=== PATIENT | male | born 1990 | race Caucasian/White ===

== ENCOUNTER 2019-07-10 11:26 | Emergency (ER) | payer SELFPAY ==
[~2019-07-10] VITALS: Ht 175.3 cm; Wt 74.8 kg
--- NOTE | 2019-07-10 11:38 | NUR ---
ED Nurse Note: PT BROUGHT IN BY [facility] AOX4. PT C/O GENERALIZED ABDOMINAL PAIN, NAUSEA, AND MULTIPLE EPISODES OF VOMITING X THIS MORNING. PT DENIES DIARRHEA. ABDOMEN NONDISTENDED AND NONTENDER TO PALPATION. ACTIVE BOWEL SOUNDS IN ALL QUADRANTS.
[2019-07-10 11:39] VITALS: BP 128/72
--- NOTE | 2019-07-10 11:40 | NUR ---
ED Nurse Note: PT BRADYCARDIC - HR 42. DR FELDER NOTIFIED. SINUS RHYTHM ON BENCH MOLDER. PT STATES HE IS NORMALLY BRADYCARDIC.
--- NOTE | 2019-07-10 11:42 | NUR ---
ED Nurse Note: PT MOANING IN PAIN AND REQUESTING DILAUDID. DR FELDER NOTIFIED.
[2019-07-10] MEDS ORDERED: Metoclopramide 10mg/2ml Inj IVP ONE (11:45)
[2019-07-10] MEDS ORDERED: DiphenhydrAMINE 50mg/ml Inj IVP ONE (11:45)
[2019-07-10] MEDS ORDERED: LORazepam Inj 2mg/ml 1ml IV ONE (11:45)
--- NOTE | 2019-07-10 12:04 | Emergency Room Report ---
History of Present Illness General Chief Complaint: Abdominal Pain Source: Patient, EMS (MaggySamantha ruiz DO) Present Illness HPI Patient presents with complaints of increased nausea vomiting Patient himself initially is acutely nauseated and not providing significant input history was mainly obtained from nursing staff and the paramedics Patient is at a recovery center and had reported to be outside yesterday Now he feels that he is withdrawing from marijuana Denies any chest pain however he does have diffuse abdominal cramping and increased nausea vomiting Denies any focal weakness (Samantha Zaldivar DO) Allergies: Coded Allergies: No Known Allergies (Unverified , 07/10/19) Patient History Past Medical History: see triage record Reviewed Nursing Documentation: PMH: Agreed; PSxH: Agreed (Samantha Zaldivar DO) Nursing Documentation-PMH Past Medical History: No History, Except For History Of Psychiatric Problem: Yes - drug abuse (Samantha Zaldivar DO) Review of Systems All Other Systems: negative except mentioned in HPI (Samantha Zaldivar DO) Physical Exam Vital Signs Date Time Temp Pulse Resp B/P (MAP) Pulse Ox O2 Delivery O2 Flow Rate FiO2 07/10/19 11:11 96.6 54 20 136/76 (96) 98 Room Air Sp02 EP Interpretation: reviewed, normal General Appearance: mild distress - Actively nauseated Head: normocephalic, atraumatic Eyes: bilateral eye PERRL, bilateral eye EOMI ENT: hearing grossly normal, normal pharynx, TMs + canals normal, uvula midline Neck: full range of motion, supple, no meningismus, no bony tend Respiratory: lungs clear, normal breath sounds, no rhonchi, no respiratory distress, no retraction, no accessory muscle use Cardiovascular #1: normal peripheral pulses, regular rate, rhythm, no edema, no gallop, no JVD, no murmur Gastrointestinal: normal bowel sounds, non tender, soft, no mass, no organomegaly, non-distended, no guarding, no hernia, no pulsatile mass, no rebound Genitourinary: no CVA tenderness Musculoskeletal: normal inspection Neurologic: oriented x3, responsive, sales and marketing representative III-XII nml as tested, motor strength/ tone normal, sensory intact Psychiatric: mood/affect normal Skin: no rash Lymphatic: normal inspection, no adenopathy (Samantha Zaldivar DO) Medical Decision Making Diagnostic Impression: Primary Impression: Cannabinoid hyperemesis syndrome Additional Impression: Colitis ER Course With the history exam and presentation, multiple differentials considered, including but not limited to appendicitis, gastritis, cholecystitis, diverticulitis Patient initially difficult to obtain history from after initial medication and some improved symptoms Patient reports that he acutely became nauseated and has diffuse abdominal discomfort Patient still not able to provide information regarding why he is in a rehab facility he also is not able to provide history of What happened last night or if he took any medications or drugs On reevaluation patient requesting something for his stomach pain I discussed that I would be prescribing Toradol Patient reports ' this will not work for me' And asking further he reports that he receives Dilaudid Patient further hydrated antiemetics provided Patient pending CT imaging of the abdomen and signed out to my oncoming physician Labs Test 07/10/19 11:50 07/10/19 14:30 White Blood Count 14.0 K/UL (4.8-10.8) Red Blood Count 5.43 M/UL (4.70-6.10) Hemoglobin 17.0 G/DL (14.2-18.0) Hematocrit 48.0 % (42.0-52.0) Mean Corpuscular Volume 89 FL (80-99) Mean Corpuscular Hemoglobin 31.3 PG (27.0-31.0) Mean Corpuscular Hemoglobin Concent 35.3 G/DL (32.0-36.0) Red Cell Distribution Width 10.7 % (11.6-14.8) Platelet Count 296 K/UL (150-450) Mean Platelet Volume 6.4 FL (6.5-10.1) Neutrophils (%) (Auto) 80.3 % (45.0-75.0) Lymphocytes (%) (Auto) 13.5 % (20.0-45.0) Monocytes (%) (Auto) 5.4 % (1.0-10.0) Eosinophils (%) (Auto) 0.3 % (0.0-3.0) Basophils (%) (Auto) 0.6 % (0.0-2.0) Sodium Level 141 MMOL/L (136-145) Potassium Level 4.1 MMOL/L (3.5-5.1) Chloride Level 105 MMOL/L (98-107) Carbon Dioxide Level 27 MMOL/L (21-32) Anion Gap 10 mmol/L (5-15) Blood Urea Nitrogen 25 mg/dL (7-18) Creatinine 1.1 MG/DL (0.55-1.30) Estimat Glomerular Filtration Rate > 60 mL/min (>60) Glucose Level 194 MG/DL (74-106) Calcium Level 9.2 MG/DL (8.5-10.1) Total Bilirubin 1.4 MG/DL (0.2-1.0) Direct Bilirubin 0.3 MG/DL (0.0-0.3) Aspartate Amino Transf (AST/SGOT) 41 U/L (15-37) Alanine Aminotransferase (ALT/SGPT) 41 U/L (12-78) Alkaline Phosphatase 138 U/L (46-116) Total Creatine Kinase 275 U/L (26-308) Creatine Kinase MB 2.4 NG/ML (0.0-3.6) Creatine Kinase MB Relative Index 0.8 Total Protein 7.7 G/DL (6.4-8.2) Albumin 4.2 G/DL (3.4-5.0) Globulin 3.5 g/dL Albumin/Globulin Ratio 1.2 (1.0-2.7) Lipase 178 U/L (73-393) Serum Alcohol < 3 mg/dL Urine Opiates Screen Negative (NEGATIVE) Urine Barbiturates Screen Positive (NEGATIVE) Phencyclidine (PCP) Screen Negative (NEGATIVE) Urine Amphetamines Screen Negative (NEGATIVE) Urine Benzodiazepines Screen Negative (NEGATIVE) Urine Cocaine Screen Negative (NEGATIVE) Urine Marijuana (THC) Screen Positive (NEGATIVE) (Samantha Zaldivar DO) ER Course Sign out received from Dr. Zaldivar 2:30pm 28-year-old male history of polysubstance abuse in treatment center presents with acute nausea vomiting, generalized abdominal pain Urinary tox screen shows barbiturates and THC Patient is requesting Dilaudid counseled patient that Dilaudid is not indicated CT scan shows no acute processes possible colitis however patient's abdomen is soft, nontender Will disposition patient home with return precautions and symptomatic control Laboratory Tests Test 07/10/19 11:50 07/10/19 14:30 White Blood Count 14.0 K/UL (4.8-10.8) H Red Blood Count 5.43 M/UL (4.70-6.10) Hemoglobin 17.0 G/DL (14.2-18.0) Hematocrit 48.0 % (42.0-52.0) Mean Corpuscular Volume 89 FL (80-99) Mean Corpuscular Hemoglobin 31.3 PG (27.0-31.0) H Mean Corpuscular Hemoglobin Concent 35.3 G/DL (32.0-36.0) Red Cell Distribution Width 10.7 % (11.6-14.8) L Platelet Count 296 K/UL (150-450) Mean Platelet Volume 6.4 FL (6.5-10.1) L Neutrophils (%) (Auto) 80.3 % (45.0-75.0) H Lymphocytes (%) (Auto) 13.5 % (20.0-45.0) L Monocytes (%) (Auto) 5.4 % (1.0-10.0) Eosinophils (%) (Auto) 0.3 % (0.0-3.0) Basophils (%) (Auto) 0.6 % (0.0-2.0) Sodium Level 141 MMOL/L (136-145) Potassium Level 4.1 MMOL/L (3.5-5.1) Chloride Level 105 MMOL/L (98-107) Carbon Dioxide Level 27 MMOL/L (21-32) Anion Gap 10 mmol/L (5-15) Blood Urea Nitrogen 25 mg/dL (7-18) H Creatinine 1.1 MG/DL (0.55-1.30) Estimate Glomerular Filtration Rate > 60 mL/min (>60) Glucose Level 194 MG/DL (74-106) H Calcium Level 9.2 MG/DL (8.5-10.1) Total Bilirubin 1.4 MG/DL (0.2-1.0) H Direct Bilirubin 0.3 MG/DL (0.0-0.3) Aspartate Amino Transferase (AST) 41 U/L (15-37) H Alanine Aminotransferase (ALT) 41 U/L (12-78) Alkaline Phosphatase 138 U/L (46-116) H Total Creatine Kinase 275 U/L (26-308) Creatine Kinase MB 2.4 NG/ML (0.0-3.6) Creatine Kinase MB Relative Index 0.8 Total Protein 7.7 G/DL (6.4-8.2) Albumin 4.2 G/DL (3.4-5.0) Globulin 3.5 g/dL Albumin/Globulin Ratio 1.2 (1.0-2.7) Lipase 178 U/L (73-393) Serum Alcohol < 3 mg/dL Urine Opiates Screen Negative (NEGATIVE) Urine Barbiturates Screen Positive (NEGATIVE) H Phencyclidine (PCP) Screen Negative (NEGATIVE) Urine Amphetamines Screen Negative (NEGATIVE) Urine Benzodiazepines Screen Negative (NEGATIVE) Urine Cocaine Screen Negative (NEGATIVE) Urine Marijuana (THC) Screen Positive (NEGATIVE) H (Orlando Christy MD) CT/MRI/US Diagnostic Results CT/MRI/US Diagnostic Results : Impression Preliminary Findings Only See Final Report For Complete Findings CT ABDOMEN & PELVIS With Contrast: Mild diffuse colonic thickening which may be underdistention versus colitis. No appendicitis, SBO, or diverticulitis. No hydronephrosis or ureteral calculus. Unremarkable gallbladder and pancreas. Splenic cyst. Radiologist: Mc Smith M.D. Study ready at 15:16 and initial results transmitted at 15:19 (Orlando Christy MD) Last Vital Signs Date Time Temp Pulse Resp B/P (MAP) Pulse Ox O2 Delivery O2 Flow Rate FiO2 07/10/19 11:39 62 18 Room Air 07/10/19 11:39 98.0 128/72 100 (Samantha Zaldivar DO) Disposition: HOME, SELF-CARE Condition: Stable Scripts Ondansetron (Zofran) 4 Mg Tablet 4 MG ORAL Q8H PRN for Nausea & Vomiting, #15 TAB 0 Refills Prov: Orlando Christy MD 07/10/19 Dicyclomine Hcl* (DICYCLOMINE HCL*) 10 Mg Capsule 10 MG ORAL QID PRN for Abdominal cramps, #20 CAP Prov: Orlando Christy MD 07/10/19 Amoxicillin/Potassium Clav 875-125* (AUGMENTIN 875-125 TABLET*) 1 Each Tablet 1 TAB ORAL TWICE A DAY, #20 TAB Prov: Orlando Christy MD 07/10/19 Referrals: [facility] Patient Instructions: Abdominal Pain, Adult, Cannabis Use Disorder, Viral Gastroenteritis, Adult Additional Instructions: The patient was provided with discharge instructions, notified to follow-up with a primary care doctor and or specialist in the next 24-48 hours, and to return to the ED if they have worsening of their symptoms. Please note that this report is being documented using DRAGON technology. This can lead to erroneous entry secondary to incorrect interpretation by the dictating instrument. Samantha Zaldivar DO Jul 10, 2019 12:04 Orlando Christy MD Jul 10, 2019 15:37
--- NOTE | 2019-07-10 12:05 | NUR ---
ED Nurse Note: XRAY AT BEDSIDE.
[2019-07-10 12:14] LABS: BASOPHILS % (AUTO) 0.6 % (0.0-2.0); EOSINOPHILS % (AUTO) 0.3 % (0.0-3.0); LYMPHOCYTES % (AUTO) 13.5 % (20.0-45.0); MEAN CORPUSCULAR VOLUME 89 FL (80-99); MONOCYTES % (AUTO) 5.4 % (1.0-10.0); NEUTROPHILS % (AUTO) 80.3 % (45.0-75.0); PLATELET COUNT 296 K/UL (150-450); RED BLOOD COUNT 5.43 M/UL (4.70-6.10); RED CELL DISTRIBUTION WIDTH 10.7 % (11.6-14.8)
[2019-07-10 12:20] LABS: ANION GAP 10 mmol/L (5-15); BLOOD UREA NITROGEN 25 mg/dL (7-18); CALCIUM 9.2 MG/DL (8.5-10.1); CARBON DIOXIDE 27 MMOL/L (21-32); CHLORIDE 105 MMOL/L (98-107); CREATININE 1.1 MG/DL (0.55-1.30); POTASSIUM 4.1 MMOL/L (3.5-5.1); SODIUM 141 MMOL/L (136-145)
--- NOTE | 2019-07-10 12:20 | NUR ---
ED Nurse Note: PT REMINDED URINE SPECIMEN IS NEEDED. PT STATES HE CANNOT URINATE AT THIS TIME. URINAL LEFT AT BEDSIDE.
[2019-07-10 12:32] LABS: ALANINE AMINOTRANSFERASE 41 U/L (12-78); ALBUMIN 4.2 G/DL (3.4-5.0); ALBUMIN/GLOBULIN RATIO 1.2 (1.0-2.7); ALKALINE PHOSPHATASE 138 U/L (46-116); ASPARTATE AMINO TRANSFERASE 41 U/L (15-37); BILIRUBIN,TOTAL 1.4 MG/DL (0.2-1.0); CKMB 2.4 NG/ML (0.0-3.6); CREATINE KINASE 275 U/L (26-308)
[2019-07-10 12:36] LABS: BILIRUBIN,DIRECT 0.3 MG/DL (0.0-0.3)
[2019-07-10] MEDS ORDERED: Isovue-300 100ml vial INJ PRN (13:45)
--- NOTE | 2019-07-10 13:48 | NUR ---
ED Nurse Note: PT TO CT VIA ZAHRA.
[2019-07-10] MEDS ORDERED: LR 1000ml 1,000 ML IV ONE (14:15)
--- NOTE | 2019-07-10 15:00 | NUR ---
ED Nurse Note: PT TOLERATING PO FLUIDS WELL. PT SLEEPING PEACEFULLY IN BED IN NAD.
--- NOTE | 2019-07-10 15:20 | Diagnostic Imaging Report ---
Indication: Abdominal pain Technique: Continuous helical transaxial imaging of the abdomen and pelvis was obtained from the lung bases to the pubic symphysis during intravenous contrast administration. Coronal 2-D reformats were also obtained. Study obtained in a Siemens sensation [address] Automatic Exposure Control was utilized. Total Dose length Product (DLP): 727.[address] Dose Index Volume (CTDIvol): 13.68 mGy Comparison: None Findings: The lung bases are clear. There is a cyst in the spleen measuring 2.7 cm. The liver and gallbladder are unremarkable. Pancreas kidneys adrenal glands are unremarkable. The appendix is retrocecal and appears normal. Bowel gas pattern is nonobstructive. Bladder is unremarkable. There is no ascites. IMPRESSION: No acute findings appreciated. Normal appendix Splenic cyst The CT scanner at [facility] is accredited by the [employer] and the scans are performed using dose optimization techniques as appropriate to a performed exam including Automatic Exposure control.
[2019-07-10] MEDS ORDERED: DICYCLOMINE HCL10 MG ORAL (15:34)
[2019-07-10] MEDS ORDERED: ZOFRAN4 MG ORAL (15:34)
[2019-07-10] MEDS ORDERED: AUGMENTIN 875-1 EAC1 ORAL (15:34)
--- NOTE | 2019-07-10 15:35 | NUR ---
ED Nurse Note: PT C/O ABDOMINAL PAIN AGAIN. PT REQUESTING FOR DILAUDID AGAIN. DR ACEVES NOTIFIED.
[2019-07-10] MEDS ORDERED: Ketorolac 30mg Inj ONE (15:41)
[2019-07-10] MEDS ORDERED: Ketorolac 30mg Inj IV ONE (15:45)
--- NOTE | 2019-07-10 15:48 | NUR ---
ED Nurse Note: PT READY FOR DISCHARGE PER DR ACEVES. PRESCRIPTIONS AND DISCHARGE PAPERWORK EXPLAINED TO PT. PT VERBALIZES UNDERSTANDING AND ALL QUESTIONS ANSWERED. PRESCRIPTIONS AND DISCHARGE PAPERWORK GIVEN TO PT, IV AND ID WRISTBAND REMOVED. PT WALKED OUT OF ER WITH STEADY GAIT AND ALL BELONGINGS.
[2019-07-10 15:50] VITALS: BP 122/76
--- NOTE | 2019-07-11 11:32 | Diagnostic Imaging Report ---
Indication: Dyspnea Comparison: None A single view chest radiograph was obtained. Findings: Cardiomediastinal appearance is within normal limits for age. The lungs are clear. Pulmonary vascularity is appropriate. The diaphragmatic contour is smooth and costophrenic angles are sharp. No pleural effusions are identified. The bones are unremarkable. Impression: No acute findings
--- NOTE | 2019-07-11 18:40 | Cardiology Report ---
APPROVED REPORT EKG Measurement Heart [id number] [id number] Marked sinus bradycardia with sinus arrhythmia Abnormal ECG
== END 2019-07-10 15:48 | disposition home or self-care (01) ==
LOC: EDBD 11:26 → EMR 11:59
DX: K52.9 Noninfective gastroenteritis and colitis, unspecified (principal); F12.188 Cannabis abuse with other cannabis-induced disorder; R11.10 Vomiting, unspecified
CPT/HCPCS: 36415; 71045; 74177; 80053; 80307; 82248; 82550; 82553; 83690; 85025; 93005; 96361; 96374; 96375; 99284; G0480; J1200; J1885; J2405; J2765; Q9967; 80329

== ENCOUNTER 2020-12-08 14:24 | Emergency (ER) | payer SELFPAY ==
[2020-12-08] VITALS (7 sets, daily range): BP systolic 107–141; BP diastolic 69–96
[~2020-12-08] VITALS: Ht 182.9 cm; Wt 90.7 kg
[~2020-12-08 14:24] MED LIST: AUGMENTIN 875-1 EAC1 ORAL; DICYCLOMINE HCL10 MG ORAL; ZOFRAN4 MG ORAL
[2020-12-08] MEDS ORDERED: LORazepam Inj 2mg/ml 1ml IV ONE (15:00)
[2020-12-08] MEDS ORDERED: Ketorolac 30mg Inj IV ONE (15:00)
[2020-12-08 15:12] LABS: BASOPHILS % (AUTO) 1.7 % (0.0-2.0); EOSINOPHILS % (AUTO) 1.1 % (0.0-3.0); HEMATOCRIT 44.9 % (42.0-52.0); HEMOGLOBIN 15.3 G/DL (14.2-18.0); LYMPHOCYTES % (AUTO) 22.2 % (20.0-45.0); MEAN CORPUSCULAR VOLUME 95 FL (80-99); MONOCYTES % (AUTO) 4.8 % (1.0-10.0); NEUTROPHILS % (AUTO) 70.2 % (45.0-75.0); PLATELET COUNT 275 K/UL (150-450); RED CELL DISTRIBUTION WIDTH 11.7 % (11.6-14.8); WHITE BLOOD COUNT 14.2 K/UL (4.8-10.8)
[2020-12-08] MEDS ORDERED: Haloperidol 5mg/ml Inj IM ONE (15:15)
[2020-12-08 15:21] LABS: ANION GAP 22 mmol/L (5-15); BLOOD UREA NITROGEN 21 mg/dL (7-18); CALCIUM 9.8 MG/DL (8.5-10.1); CARBON DIOXIDE 20 MMOL/L (21-32); CHLORIDE 101 MMOL/L (98-107); CREATININE 1.2 MG/DL (0.55-1.30); POTASSIUM 3.5 MMOL/L (3.5-5.1); SODIUM 142 MMOL/L (136-145)
[2020-12-08 15:26] LABS: ALANINE AMINOTRANSFERASE 18 U/L (12-78); ALBUMIN 4.3 G/DL (3.4-5.0); ALBUMIN/GLOBULIN RATIO 1.1 (1.0-2.7); ALKALINE PHOSPHATASE 78 U/L (46-116); ASPARTATE AMINO TRANSFERASE 24 U/L (15-37); BILIRUBIN,TOTAL 0.9 MG/DL (0.2-1.0)
--- NOTE | 2020-12-08 16:21 | NUR ---
ED Nurse Note: pt aggressive & yelling in ER waiting room. pt called 911 from ER waiting room due to "not wanting to wait". pt able to be calmed down. agreed to be seen in ER. pt bedded, IV placed, pt on monitor, labs sent. pt medicated for hydration/pain/nausea/agitation. pt yelling at staff for more pain medications. pt unable to redirect. 1600: pt ripped out IV due to "trying to get comfortable". pt repeating "NURSE! NURSE! I NEED PAIN MEDICATION." RN explaining pt was medicated for pain already and it is too early for more pain medication. pt becoming aggressive, getting out of bed, yelling for the MD airport tower controller to give him medicine. pt refusing to wear mask in room or in hallway. pt eventually calm and able to return to bed. 1630: pt refusing to stay on secured entrance monitor. pt informed of importance and educated on why he needs to be monitored.
--- NOTE | 2020-12-08 17:30 | NUR ---
ED Nurse Note: pt refusing to stay on cardiac montior. pt ambulating to restroom. pt refsuing to give urine sample. 1800: pt refusing to stay on cardiac/O2 monitor. pt refusing to wear mask. pt bradycardic when on monitor. MD aware. 1845: pt gave urine sample. RN walked to lab. pt agreed to stay on director of cardiac cath lab after speaking with . 1900: handoff pt care to katerina hurtado.
--- NOTE | 2020-12-08 18:40 | Emergency Room Report ---
History of Present Illness General Chief Complaint: Vomiting Source: Patient, Medical Record Present Illness HPI 30-year-old male presents with abdominal pain and nausea and vomiting. Patient was in waiting room started screaming and yelling demanding to be seen immediately. Refused to be triaged. Refused to wear a mask. Patient called 911. [employer] spoke to him and explained that his behavior is inappropriate. Told him they would call the police which she begged them not to. Stated at this point he would comply. Admits to marijuana use. Pain is general, 6 out of 10, nonradiating. Denies chest pain or shortness of breath. No other aggravating relieving factors. Denies any other associated symptoms Allergies: Coded Allergies: No Known Allergies (Unverified , 07/10/19) COVID-19 Screening Contact w/high risk pt: No Experienced COVID-19 symptoms?: Yes COVID-19 Testing performed POISING INSPECTOR: No Patient History Past Medical History: none Past Surgical History: none Pertinent Family History: none Social History: Reports: drug use; Denies: smoking, alcohol use Immunizations: UTD Reviewed Nursing Documentation: PMH: Agreed; PSxH: Agreed Nursing Documentation-PMH Past Medical History: No History, Except For Review of Systems All Other Systems: negative except mentioned in HPI Physical Exam Vital Signs Date Time Temp Pulse Resp B/P (MAP) Pulse Ox O2 Delivery O2 Flow Rate FiO2 12/08/20 14:57 97.5 58 20 149/94 (112) 100 Room Air 12/08/20 15:26 100 Sp02 EP Interpretation: reviewed, normal General Appearance: no apparent distress, alert, GCS 15, non-toxic Head: normocephalic, atraumatic Eyes: bilateral eye normal inspection, bilateral eye PERRL ENT: hearing grossly normal, normal pharynx, no angioedema, normal voice Neck: full range of motion, supple/symm/no masses Respiratory: chest non-tender, lungs clear, normal breath sounds, speaking full sentences Cardiovascular #1: regular rate, rhythm, no edema Cardiovascular #2: 2+ carotid (R), 2+ carotid (L), 2+ radial (R), 2+ radial (L), 2+ dorsalis pedis (R), 2+ dorsalis pedis (L) Gastrointestinal: normal bowel sounds, non tender, soft, non-distended, no guarding, no rebound Rectal: deferred Genitourinary: normal inspection, no CVA tenderness Musculoskeletal: back normal, normal range of motion, gait/station normal, non- tender Neurologic: alert, motor strength/tone normal, oriented x3, sensory intact, responsive, speech normal Psychiatric: judgement/insight normal, memory normal, mood/affect normal, no suicidal/homicidal ideation Reflexes: 3+ bicep (R), 3+ bicep (L), 3+ tricep (R), 3+ tricep (L), 3+ knee (R), 3+ knee (L) Lymphatic: no adenopathy Medical Decision Making Diagnostic Impression: Primary Impression: Vomiting Qualified Codes: R11.2 - Nausea with vomiting, unspecified ER Course Hospital Course 30-year-old male presents with abdominal pain and vomiting Differential diagnosis includes-appendicitis, cholecystitis, small bowel obstruction, gastritis, Clinical course Patient placed on stretcher. After initial history and physical I ordered labs, IV fluids, pain medications Labs - noted leukocytosis, electrolytes ok, LFTs normal, UDS + THC patient continue his medication patient continues to complain of pain. CT ordered CT scan shows no acute pathology On reassessment patient still has states he has pain. I reviewed EMR has been here previously for similar episodes of pain with CT being negative. Patient continues to be disruptive to the ED constantly removing his IV and monitor. Patient will be discharged. I feel this is a highly complex case requiring extensive working including EKG/Rhythm strip, Xray/CT/US, Blood/urine lab work, repeat exams while in ED, and administration of strong opiates/narcotics for pain control, admission to hospital or close patient follow up. Diagnosis - vomiting Stable and discharged to home. Followup with PMD. Return to ED if symptoms recur or worsen Laboratory Tests Test 12/08/20 18:49 Urine Color Yellow Urine Appearance Slightly cloudy Urine pH 6 (4.5-8.0) Urine Specific [place] 1.020 (1.005-1.035) Urine Protein 2+ (NEGATIVE) H Urine Glucose (UA) Negative (NEGATIVE) Urine Ketones 4+ (NEGATIVE) H Urine Blood 1+ (NEGATIVE) H Urine Nitrite Negative (NEGATIVE) Urine Bilirubin Negative (NEGATIVE) Urine Urobilinogen 1 MG/DL (0.0-1.0) H Urine Leukocyte Esterase 1+ (NEGATIVE) H Urine RBC 2-4 /HPF (0 - 0) H Urine WBC 5-10 /HPF (0 - 0) H Urine Squamous Epithelial Cells None /LPF (NONE/OCC) Urine Bacteria Few /HPF (NONE) Urine Opiates Screen Negative (NEGATIVE) Urine Barbiturates Screen Negative (NEGATIVE) Phencyclidine (PCP) Screen Negative (NEGATIVE) Urine Amphetamines Screen Negative (NEGATIVE) Urine Benzodiazepines Screen Negative (NEGATIVE) Urine Cocaine Screen Negative (NEGATIVE) Urine Marijuana (THC) Screen Positive (NEGATIVE) H CT/MRI/US Diagnostic Results CT/MRI/US Diagnostic Results : Imaging Test Ordered: CT A/P Impression Procedure: CT Abdomen Pelvis w/Contrast EXAM: CT Abdomen and Pelvis With Intravenous Contrast CLINICAL HISTORY: ABD PAIN, VOMITING. "Per Aliveshoes Jo, 99 mL of Omnipaque 300 contrast was successfully injected into patient, patient did not complain of any pain, only thing remarkable about pt/exam was that heart rate was really low if that makes a difference" TECHNIQUE: Axial computed tomography images of the abdomen and pelvis with intravenous contrast. CTDI is 4.5 mGy and DLP is 249.1 mGy-cm. One or more of the following dose reduction techniques were used: automated exposure control, adjustment of the mA and/or kV according to patient size, use of iterative reconstruction technique. Coronal and sagittal reformatted images were created and reviewed. Note, although IV contrast was injected into the patient with no extravasation reported, no IV contrast identified on the 352 images received. COMPARISON: 07/10/19 FINDINGS: Limitations: Scant mesenteric fat limits evaluation of mesenteric inflammation Lung bases: Unremarkable. No mass. No consolidation. ABDOMEN: Liver: Unremarkable. No mass. Gallbladder and bile ducts: Unremarkable. No calcified stones. No ductal dilation. Pancreas: Unremarkable. No mass. No ductal dilation. Spleen: 2.7 x 2.8 cm hypodense lesion in anterolateral aspect the spleen is increased from 2.3 cm, likely benign such as cyst or hemangioma. Adrenals: Unremarkable. No mass. Kidneys and ureters: Unremarkable. No solid mass. No hydronephrosis. Stomach and bowel: Unremarkable. No obstruction. No mucosal thickening. PELVIS: Appendix: Normal. Bladder: Unremarkable. No mass. Reproductive: Unremarkable as visualized. ABDOMEN and PELVIS: Intraperitoneal space: Unremarkable. No free air. No significant fluid collection. Bones/joints: No acute fracture. No dislocation. Soft tissues: Unremarkable. Vasculature: Unremarkable. No abdominal aortic aneurysm. Lymph nodes: Unremarkable. No enlarged lymph nodes. IMPRESSION: No acute findings in the abdomen or pelvis. Last Vital Signs Date Time Temp Pulse Resp B/P (MAP) Pulse Ox O2 Delivery O2 Flow Rate FiO2 12/08/20 15:39 67 18 107/96 100 Room Air 12/08/20 15:26 100 12/08/20 14:57 97.5 Status: improved Disposition: HOME, SELF-CARE Condition: Stable Scripts Dicyclomine Hcl* (DICYCLOMINE HCL*) 10 Mg Capsule 10 MG ORAL QID, #20 CAP Prov: Jarvis Cordova MD 12/08/20 Famotidine* (Pepcid 20mg tablet*) 20 Mg Tablet 20 MG ORAL DAILY for Gerd, #30 TAB 0 Refills Prov: Jarvis Cordova MD 12/08/20 Ondansetron Odt* (ZOFRAN ODT*) 4 Mg Tab.rapdis 4 MG BC EVERY 6 HOURS PRN for Nausea & Vomiting, #20 TAB 0 Refills Prov: Jarvis Cordova MD 12/08/20 Referrals: NOT CHOSEN IPA/,REFERRING (PCP) Jarvis Cordova MD Dec 08, 2020 18:40
[2020-12-08] MEDS ORDERED: Morphine Sulfate 4mg/ml Inj (IV USE ONLY) IVP ONE (19:00)
[2020-12-08 19:10] LABS: BILIRUBIN, URINE NEGATIVE (NEGATIVE); GLUCOSE, URINE (UA) NEGATIVE (NEGATIVE); KETONES,URINE 4+ (NEGATIVE); LEUKOCYTE ESTERASE ,URINE 1+ (NEGATIVE); NITRITE,URINE NEGATIVE (NEGATIVE); PH,URINE 6 (4.5-8.0); PROTEIN,URINE 2+ (NEGATIVE); UROBILINOGEN,URINE 1 MG/DL (0.0-1.0)
--- NOTE | 2020-12-08 19:17 | NUR ---
ED Nurse Note:Report received from off going nurse JESICA sainz Patient in bed, resting. 133/80, HR 53
[2020-12-08 19:23] LABS: APPEARANCE,URINE SLIGHTLY CLOUDY; COLOR,URINE YELLOW
[2020-12-08] MEDS ORDERED: Omnipaque-300 100ml vial INJ PRN (19:30)
--- NOTE | 2020-12-08 19:49 | NUR ---
ED Nurse Note: 20g peripheral line placed to right AC, patent. Patient is off the floor for CT.
--- NOTE | 2020-12-08 20:53 | Diagnostic Imaging Report ---
EXAM: CT Abdomen and Pelvis With Intravenous Contrast CLINICAL HISTORY: ABD PAIN, VOMITING. "Per Personeta Jo, 99 mL of Omnipaque 300 contrast was successfully injected into patient, patient did not complain of any pain, only thing remarkable about pt/exam was that heart rate was really low if that makes a difference" TECHNIQUE: Axial computed tomography images of the abdomen and pelvis with intravenous contrast. CTDI is 4.5 mGy and DLP is 249.1 mGy-cm. One or more of the following dose reduction techniques were used: automated exposure control, adjustment of the mA and/or kV according to patient size, use of iterative reconstruction technique. Coronal and sagittal reformatted images were created and reviewed. Note, although IV contrast was injected into the patient with no extravasation reported, no IV contrast identified on the 352 images received. COMPARISON: 07/10/19 FINDINGS: Limitations: Scant mesenteric fat limits evaluation of mesenteric inflammation Lung bases: Unremarkable. No mass. No consolidation. ABDOMEN: Liver: Unremarkable. No mass. Gallbladder and bile ducts: Unremarkable. No calcified stones. No ductal dilation. Pancreas: Unremarkable. No mass. No ductal dilation. Spleen: 2.7 x 2.8 cm hypodense lesion in anterolateral aspect the spleen is increased from 2.3 cm, likely benign such as cyst or hemangioma. Adrenals: Unremarkable. No mass. Kidneys and ureters: Unremarkable. No solid mass. No hydronephrosis. Stomach and bowel: Unremarkable. No obstruction. No mucosal thickening. PELVIS: Appendix: Normal. Bladder: Unremarkable. No mass. Reproductive: Unremarkable as visualized. ABDOMEN and PELVIS: Intraperitoneal space: Unremarkable. No free air. No significant fluid collection. Bones/joints: No acute fracture. No dislocation. Soft tissues: Unremarkable. Vasculature: Unremarkable. No abdominal aortic aneurysm. Lymph nodes: Unremarkable. No enlarged lymph nodes. IMPRESSION: No acute findings in the abdomen or pelvis.
[2020-12-08] MEDS ORDERED: Mylanta II UD 30ml ORAL ONE (21:00)
[2020-12-08] MEDS ORDERED: Dicyclomine HCl 10mg/5ml oral soln ORAL ONE (21:00)
[2020-12-08] MEDS ORDERED: Lidocaine 2% Visc 15ml soln ORAL ONE (21:00)
[2020-12-08] MEDS ORDERED: ONDANSETRON ODT4 MG BC (21:03)
[2020-12-08] MEDS ORDERED: FAMOTIDINE20 MG ORAL (21:03)
[2020-12-08] MEDS ORDERED: DICYCLOMINE HCL10 MG ORAL (21:03)
--- NOTE | 2020-12-08 21:17 | NUR ---
ER DISCHARGE NOTE: Patient is cleared to be discharged per ERMD, pt is aox4, on room air, with stable vital signs. pt was given dc and prescription instructions, pt was able to verbalize understanding, pt id band and iv site removed without complications. pt is able to ambulate with steady gait. pt took all belongings.
== END 2020-12-08 21:31 | disposition home or self-care (01) ==
LOC: EMR 14:54
DX: R11.2 Nausea with vomiting, unspecified (principal); F12.90 Cannabis use, unspecified, uncomplicated
CPT/HCPCS: 36415; 74177; 80053; 80307; 81003; 83690; 85025; 96361; 96372; 96374; 96375; 99284; J1630; J1885; J2405; J7030; Q9965; S0028

== ENCOUNTER 2020-12-17 13:38 | Emergency (ER) | payer SELFPAY ==
[~2020-12-17] VITALS: Ht 172.7 cm; Wt 72.6 kg
[~2020-12-17 13:38] MED LIST changes: +FAMOTIDINE20 MG ORAL; +ONDANSETRON ODT4 MG BC
--- NOTE | 2020-12-17 14:22 | Emergency Room Report ---
History of Present Illness General Chief Complaint: Abdominal Pain Source: Patient, Medical Record Present Illness HPI Disclaimer: Please note that this report is being documented using DRAGON technology. This can lead to erroneous entry secondary to incorrect interpretation by the dictating instrument. HPI: 30-year-old male presents for abdominal pain and vomiting. Multiple visits to ED with similar complaints. Reports diffuse abdominal cramping. Denies diarrhea. Denies hematemesis. Denies chest pain, palpitations, fever, chills, sore throat, nasal congestion or other symptoms at this time. No prior history of abdominal surgery. Denies dysuria or hematuria. He is not taking antacids or the antiemetics prescribed at his other ER visits. Continues to smoke marijuana. Patient sticking his finger in his throat purposely gagging himself. PMH: Reviewed PSH: Denied Allergies: Denied Social Hx: THC use Allergies: Coded Allergies: No Known Allergies (Unverified , 07/10/19) COVID-19 Screening Contact w/high risk pt: No Experienced COVID-19 symptoms?: No COVID-19 Testing performed WEB FEEDER: No Nursing Documentation-PMH Past Medical History: No History, Except For Review of Systems All Other Systems: negative except mentioned in HPI Physical Exam Vital Signs Date Time Temp Pulse Resp B/P (MAP) Pulse Ox O2 Delivery O2 Flow Rate FiO2 12/17/20 13:26 97.5 90 20 118/76 (90) 96 Room Air General: Awake and alert, HEENT: NC/AT. EOMI. Cardiovascular: RRR. S1 and S2 normal. No murmur appreciated Resp: Normal work of breathing. No cough, wheezing or crackles appreciated Abdomen: Abdomen is soft, nondistended. Mildly tender to palpation diffusely. No focal tenderness. No rebound or guarding. Skin: Intact. No abrasions, laceration or rash over the exposed skin MSK: Normal tone and bulk. Moving all extremities. No obvious deformity. Neuro: Awake and alert. Mentating appropriately. Medical Decision Making Diagnostic Impression: Primary Impression: Vomiting ER Course 30-year-old male presents for abdominal pain and vomiting. Reports recent marijuana use. Similar visits in the past. Labs again largely within normal limits. The patient has been using the bathroom but has refused to provide urine. No vomiting in the ER. We will refill his Pepcid and Zofran. Counseled on marijuana cessation. Stable for outpatient follow-up Laboratory Tests Test 12/17/20 14:50 White Blood Count 13.5 K/UL (4.8-10.8) H Red Blood Count 5.01 M/UL (4.70-6.10) Hemoglobin 15.4 G/DL (14.2-18.0) Hematocrit 46.2 % (42.0-52.0) Mean Corpuscular Volume 92 FL (80-99) Mean Corpuscular Hemoglobin 30.7 PG (27.0-31.0) Mean Corpuscular Hemoglobin Concent 33.3 G/DL (32.0-36.0) Red Cell Distribution Width 11.9 % (11.6-14.8) Platelet Count 277 K/UL (150-450) Mean Platelet Volume 6.9 FL (6.5-10.1) Neutrophils (%) (Auto) 80.2 % (45.0-75.0) H Lymphocytes (%) (Auto) 9.6 % (20.0-45.0) L Monocytes (%) (Auto) 7.4 % (1.0-10.0) Eosinophils (%) (Auto) 0.4 % (0.0-3.0) Basophils (%) (Auto) 2.3 % (0.0-2.0) H Sodium Level 138 MMOL/L (136-145) Potassium Level 4.0 MMOL/L (3.5-5.1) Chloride Level 101 MMOL/L (98-107) Carbon Dioxide Level 26 MMOL/L (21-32) Anion Gap 11 mmol/L (5-15) Blood Urea Nitrogen 23 mg/dL (7-18) H Creatinine 1.2 MG/DL (0.55-1.30) Estimated Glomerular Filtration Rate > 60 mL/min (>60) Glucose Level 122 MG/DL (74-106) H Calcium Level 9.7 MG/DL (8.5-10.1) Total Bilirubin 1.1 MG/DL (0.2-1.0) H Direct Bilirubin 0.2 MG/DL (0.0-0.3) Aspartate Amino Transferase (AST) 32 U/L (15-37) Alanine Aminotransferase (ALT) 24 U/L (12-78) Alkaline Phosphatase 76 U/L (46-116) Total Protein 8.4 G/DL (6.4-8.2) H Albumin 4.4 G/DL (3.4-5.0) Globulin 4.0 g/dL Albumin/Globulin Ratio 1.1 (1.0-2.7) Lipase 108 U/L (73-393) Last Vital Signs Date Time Temp Pulse Resp B/P (MAP) Pulse Ox O2 Delivery O2 Flow Rate FiO2 12/17/20 13:26 97.5 90 20 118/76 (90) 96 Room Air Disposition: HOME, SELF-CARE Condition: Stable Scripts Famotidine* (Pepcid 20mg tablet*) 20 Mg Tablet 20 MG ORAL DAILY for Gerd, #30 TAB 0 Refills Prov: Shine Mccabe MD 12/17/20 Ondansetron Odt* (ZOFRAN ODT*) 4 Mg Tab.rapdis 4 MG BC EVERY 6 HOURS PRN for Nausea & Vomiting, #20 TAB 0 Refills Prov: Shine Mccabe MD 12/17/20 Shine Mccabe MD Dec 17, 2020 14:22
--- NOTE | 2020-12-17 14:40 | NUR ---
pt in room, got in bed and turned over. redirected pt to roll back on his back so iv and labs could be completed. pt did, pt demanding for a blanket. asked pt to be patient that he would get one. pt stated he wanted to zofran that was ordered and pain medications to go with it. informed pt that the ERMD has not prescribed pain meds and if there was an order for it, it would be given. pt stated that he started vomiting this morning after smoking marijuana. pt has been in numerous times due to this but states he still smokes it. pt went to the restroom and this RN asked that he use the cup and get a urine sample. pt came out of the restroom without any urine unknown why.
[2020-12-17 14:45] VITALS: BP 118/76
--- NOTE | 2020-12-17 14:55 | NUR ---
no rooms when pt arrived by EMS. pt sat in a chair putting his hand down his throat to vomit. pt spitting in the floor. pt then got on the floor and was laying down. redirected pt to sit in the chair and to spit in the emesis bag he was holding. pt ignored requests.
[2020-12-17 15:02] LABS: BASOPHILS % (AUTO) 2.3 % (0.0-2.0); EOSINOPHILS % (AUTO) 0.4 % (0.0-3.0); HEMATOCRIT 46.2 % (42.0-52.0); HEMOGLOBIN 15.4 G/DL (14.2-18.0); LYMPHOCYTES % (AUTO) 9.6 % (20.0-45.0); MEAN CORPUSCULAR VOLUME 92 FL (80-99); MONOCYTES % (AUTO) 7.4 % (1.0-10.0); NEUTROPHILS % (AUTO) 80.2 % (45.0-75.0); PLATELET COUNT 277 K/UL (150-450); RED BLOOD COUNT 5.01 M/UL (4.70-6.10); RED CELL DISTRIBUTION WIDTH 11.9 % (11.6-14.8); WHITE BLOOD COUNT 13.5 K/UL (4.8-10.8)
[2020-12-17 15:15] LABS: ANION GAP 11 mmol/L (5-15); BLOOD UREA NITROGEN 23 mg/dL (7-18); CALCIUM 9.7 MG/DL (8.5-10.1); CARBON DIOXIDE 26 MMOL/L (21-32); CHLORIDE 101 MMOL/L (98-107); CREATININE 1.2 MG/DL (0.55-1.30); SODIUM 138 MMOL/L (136-145)
--- NOTE | 2020-12-17 15:16 | NUR ---
pt is resting with the cover up to his eyes in no noted distress
[2020-12-17 15:25] LABS: ALANINE AMINOTRANSFERASE 24 U/L (12-78); ALBUMIN 4.4 G/DL (3.4-5.0); ALBUMIN/GLOBULIN RATIO 1.1 (1.0-2.7); ALKALINE PHOSPHATASE 76 U/L (46-116); ASPARTATE AMINO TRANSFERASE 32 U/L (15-37); BILIRUBIN,TOTAL 1.1 MG/DL (0.2-1.0)
[2020-12-17 15:27] LABS: BILIRUBIN,DIRECT 0.2 MG/DL (0.0-0.3)
--- NOTE | 2020-12-17 15:52 | NUR ---
requested urine, pt said he couldn't "pee"
[2020-12-17] MEDS ORDERED: ONDANSETRON ODT4 MG BC (16:10)
[2020-12-17] MEDS ORDERED: FAMOTIDINE20 MG ORAL (16:10)
== END 2020-12-17 16:20 | disposition home or self-care (01) ==
LOC: EDBD 13:38 → EMR 15:03
DX: R10.9 Unspecified abdominal pain (principal); R11.10 Vomiting, unspecified; F12.90 Cannabis use, unspecified, uncomplicated
CPT/HCPCS: 80053; 82248; 83690; 85025; 96374; 99284; J2405